=== PATIENT | male | born 1995 | race African-American/Black ===

== ENCOUNTER 2019-12-29 11:35 | Emergency (ER) | payer OTHER ==
[~2019-12-29] VITALS: Ht 185.4 cm; Wt 78.5 kg
[2019-12-29 12:46] LABS: URINE BILIRUBIN NEGATIVE (Negative); URINE BLOOD NEGATIVE (Negative); URINE CLARITY CLEAR; URINE COLOR YELLOW; URINE GLUCOSE-RANDOM* NEGATIVE (Negative); URINE KETONES NEGATIVE (Negative); URINE LEUKOCYTES-REFLEX NEGATIVE (Negative); URINE NITRITE-REFLEX NEGATIVE (Negative); URINE PROTEIN (DIPSTICK) NEGATIVE (Negative); URINE SPECIFIC GRAVITY >= 1.030 (1.005-1.035); URINE UROBILINOGEN 0.2 E.U./dl (0.2-1.0)
[2019-12-29 13:16] VITALS: BP 132/74
== END 2019-12-29 13:16 | disposition home or self-care (01) ==
LOC: ER 11:35
PROVIDERS: Emergency Medicine
DX: N48.30 Priapism, unspecified (principal); R30.9 Painful micturition, unspecified; R39.11 Hesitancy of micturition; R35.0 Frequency of micturition